=== PATIENT | female | born 1955 | race Caucasian/White ===

== ENCOUNTER → 2024-08-31 | Outpatient (CLI) | payer MEDICARE, OTHER, SELFPAY ==
--- NOTE | 2024-08-31 | XR_ITS ---
Examination: Screening digital mammography, bilateral Computer aided detection 3-D breast Tomosynthesis, bilateral Date and time of exam: August 31, 2024 1107 hours Compared to mammograms dating to July 17, 2021 Indication: Screening Technique: Nonmagnified MLO, CC views of the breasts to been obtained, reconstructed from 3-D Tomosynthesis images. R2 computer aided detection program utilized for evaluation of suspicious masses and/or abnormal calcifications. 3-D Tomosynthesis images obtained. Findings: Scattered areas of fibroglandular density. Stable focal asymmetric glandular tissue outer upper right breast No interval suspicious masses Impression: BI-RADS category II: Benign Findings. Recommend 1 year follow-up mammogram.
== END | disposition home or self-care (01) ==
PROVIDERS: PCP Family Medicine; Referring Provider Nurse Practitioner Family; Visit Provider Nurse Practitioner Family
DX: Z12.31 Encounter for screening mammogram for malignant neoplasm of breast (principal); R92.323 Mammographic fibroglandular density, bilateral breasts
CPT/HCPCS: 77063; 77067

== ENCOUNTER 2024-11-28 13:00 | Outpatient (RCR) | payer MEDICARE, OTHER, SELFPAY ==
--- NOTE | 2024-11-16 13:19 | PTNOTE_ITS ---
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 Pt still has pain (7/10) with activities. Pt has a follow up appt next week and there are still stables around the surgical site. Pt has limitation with lifting, overhead motions, chores, self care, cooking, cleaning, and performing recreational activities. Objective: Right Shoulder PROM Flexion: 90 deg Abduction: 80 deg ER: 10 deg IR: unable due to pain Right Shoulder AROM Flexion: 45 deg Abduction: 60 deg ER and IR: unable Right Shoulder MMTs: grossly 3-/5 Right Scapula MMTs: grossly 3-/5 District Commercial Superintendent Strength L: 50 lbs R: 34 lbs Assessment: Pt demonstrate right shoulder mobility and strength deficits s/p surgery leading to difficulty with ADLs. Pt will benefit from physical therapy to increase ROM, strength, and work on overall mobility Short Term and Strategic Partnership Manager Goals 1) Increase right shoulder PROM WFL in 12 wks to prevent frozen shoulder 2) Increase right shoulder AROM WFL in 12 wks to be able to perform overhead motions 3) Decrease shoulder pain 2/10 in 12 wks to be able to perform chores 3) Increase right shoulder MMTs grossly to 4/5 in 12 wks to be able to perform lifting activities 4) Increase right scapula MMTs grossly to 4-/5 in 12 wks to be able to perform recreational activities 5) Indep with HEP Treatment Plan 1) Manual Therapy 2) Therapeutic Activities 3) Therapeutic Exercises 4) Modalities (ice, heat) Frequency and Duration: 2 x wk for 6 wks Certification Dates: 11/16/24 to 02/15/25 Procedure Charges OP PT Eval Mod Complex 30 minutes: Yes
--- NOTE | 2024-11-22 11:28 | PT.ODAYNRPT ---
PT Outpatient Daily Note OP Daily Note Outpatient Physical Therapy Treatment Date: 11/22/24 Visit Reasons: Post op right shoulder Subjective: Pt's shoulder feels stiff and hurts this morning. Objective: Please see flow chart for list of ther ex performed Assessment: patient very guarded with PROM; cues to relax to achieve more PROM. Post ice helped with pain and soreness Plan: Continue with PT Length of Time (minutes) of Treatment: 30 Minutes Procedure Charges Therapeutic Exercise 30 minutes: Yes
--- NOTE | 2024-11-26 13:48 | PTNOTE_ITS ---
PT Outpatient Daily Note OP Daily Note Outpatient Physical Therapy Treatment Date: 11/26/24 Visit Reasons: Post op right shoulder Subjective: Pt c/o shoulder pain, soreness and stikffness. Objective: Please see flow sheet for ther ex list. Assessment: AAROM interventions completed with minimal pain. Pt guarded during PROM due to pain response resulting in poor motion. Plan: Continue with POC, progress per post op protocol. Length of Time (minutes) of Treatment: 30 Minutes PRODUCTION COUNTER Service Modifier Method I: Divide the number of min of care provided by the PRODUCTION COUNTER/DALE by the total min of care provided then multiply by 100. If greater than 11 percent modifier is required. Method II: Divide the total time of care provided to patient by 10 (round to the nearest whole number) and add 1 min. to set the minimum time requirement. If treatment total was 60 min., then 10% of 6 min PT CQ modifier applied: CQ Modifier applied Procedure Charges Therapeutic Exercise 30 minutes: Yes
--- NOTE | 2024-11-28 13:42 | PT.ODAYNRPT ---
PT Outpatient Daily Note OP Daily Note Outpatient Physical Therapy Treatment Date: 11/28/24 Visit Reasons: Post op right shoulder Subjective: Pt reports shoulder is sore going down the arm. Pt asking if she can mop at home as part of chores for home. Objective: Please see flow sheet for ther ex list. Assessment: Pt recommended to avoid heavy activities and lifting weighted objects, or lifting weighted object OH at this time due to current post op timeline. Pt educated to be mindful when doing chores and tasks at home to not over stress tissue or carry heavy objects avoiding unessasary stress on surgical site at this time. Plan: Assess response to treatment. Progress per post op protocol. Length of Time (minutes) of Treatment: 30 Minutes SHIPS OR BARGES LOADER Service Modifier Method I: Divide the number of min of care provided by the SHIPS OR BARGES LOADER/RUBBER ATTACHER by the total min of care provided then multiply by 100. If greater than 11 percent modifier is required. Method II: Divide the total time of care provided to patient by 10 (round to the nearest whole number) and add 1 min. to set the minimum time requirement. If treatment total was 60 min., then 10% of 6 min PT CQ modifier applied: CQ Modifier applied Procedure Charges Therapeutic Exercise 30 minutes: Yes
== END 2024-11-28 23:59 | disposition home or self-care (01) ==
LOC: CPTX 13:00
PROVIDERS: PCP Family Medicine; Referring Provider Nurse Practitioner; Visit Provider Nurse Practitioner
DX: M25.511 Pain in right shoulder (principal); Z96.611 Presence of right artificial shoulder joint
CPT/HCPCS: 97110; 97162

== ENCOUNTER 2024-12-25 13:30 | Outpatient (RCR) | payer MEDICARE, OTHER, SELFPAY ==
--- NOTE | 2024-12-03 13:33 | PT.ODAYNRPT ---
PT Outpatient Daily Note OP Daily Note Outpatient Physical Therapy Treatment Date: 12/03/24 Visit Reasons: right shoulder surgery Subjective: Pt reports R shoulder is sore. Objective: Please see flow sheet for ther ex list. Assessment: Progressing interventions per post op protocol, pt tolerated with minimal pain and soreness. Plan: Continue with pOC. Length of Time (minutes) of Treatment: 30 Minutes HEAD TRACK COACH Service Modifier Method I: Divide the number of min of care provided by the HEAD TRACK COACH/WET MACHINE OPERATOR by the total min of care provided then multiply by 100. If greater than 11 percent modifier is required. Method II: Divide the total time of care provided to patient by 10 (round to the nearest whole number) and add 1 min. to set the minimum time requirement. If treatment total was 60 min., then 10% of 6 min PT CQ modifier applied: CQ Modifier applied Procedure Charges Therapeutic Exercise 30 minutes: Yes
--- NOTE | 2024-12-05 13:16 | PTNOTE_ITS ---
PT Outpatient Daily Note OP Daily Note Outpatient Physical Therapy Treatment Date: 12/05/24 Visit Reasons: right shoulder surgery Subjective: No new complaints or concerns. Objective: Please see flow sheet for ther ex list. Assessment: Progression of interventions completed with minimal pain. Plan: Continue with POC. Length of Time (minutes) of Treatment: 30 Minutes LEGAL COORDINATOR Service Modifier Method I: Divide the number of min of care provided by the LEGAL COORDINATOR/FISH AND WILDLIFE BIOLOGIST by the total min of care provided then multiply by 100. If greater than 11 percent modifier is required. Method II: Divide the total time of care provided to patient by 10 (round to the nearest whole number) and add 1 min. to set the minimum time requirement. If treatment total was 60 min., then 10% of 6 min PT CQ modifier applied: CQ Modifier applied Procedure Charges Therapeutic Exercise 30 minutes: Yes
--- NOTE | 2024-12-14 16:05 | PT.ODAYNRPT ---
PT Outpatient Daily Note OP Daily Note Outpatient Physical Therapy Treatment Date: 12/14/24 Visit Reasons: right shoulder surgery Subjective: Pt's shoulder is better. Pt can reach higher with less pain. Pt follows up with surgeon at the end of the month. Objective: Right Shoulder Flexion AROM: 90 deg Assessment: progressing with shoulder AROM with less pain reported. Post ice helped with pain and soreness Plan: Continue with PT Length of Time (minutes) of Treatment: 30 Minutes Procedure Charges Therapeutic Exercise 30 minutes: Yes
--- NOTE | 2024-12-17 13:40 | PTNOTE_ITS ---
PT Outpatient Daily Note OP Daily Note Outpatient Physical Therapy Treatment Date: 12/17/24 Visit Reasons: right shoulder surgery Subjective: Pt reports shoulder was sore after last session, will not be skipping cold pack today. Objective: Please see flow sheet for ther ex list. Assessment: Regressed interventions to accommodate soreness reported. Plan: Continue with POC. Length of Time (minutes) of Treatment: 30 Minutes INVESTMENT MANAGER Service Modifier Method I: Divide the number of min of care provided by the INVESTMENT MANAGER/DALE by the total min of care provided then multiply by 100. If greater than 11 percent modifier is required. Method II: Divide the total time of care provided to patient by 10 (round to the nearest whole number) and add 1 min. to set the minimum time requirement. If treatment total was 60 min., then 10% of 6 min PT CQ modifier applied: CQ Modifier applied Procedure Charges Therapeutic Exercise 30 minutes: Yes
--- NOTE | 2024-12-19 13:39 | PT.ODAYNRPT ---
PT Outpatient Daily Note OP Daily Note Outpatient Physical Therapy Treatment Date: 12/19/24 Visit Reasons: right shoulder surgery Subjective: Pt's shoulder feels much better. Pt mentioned that she still has limitation with overhead motions. Objective: Please see flow chart for list of ther ex perfromed Assessment: still exhibit rotator cuff weakness leading to shoulder height AROM. Pt is progressing with shoulder AAROM in flexion, scaption, and ER Plan: Continue with PT Length of Time (minutes) of Treatment: 30 Minutes Procedure Charges Therapeutic Exercise 30 minutes: Yes
--- NOTE | 2024-12-25 14:56 | PTNOTE_ITS ---
PT Outpatient Daily Note OP Daily Note Outpatient Physical Therapy Treatment Date: 12/25/24 Visit Reasons: right shoulder surgery Subjective: Pt reports R shoulder is sore today, mentioned that she has pain when reaching out such as when applying deodorant r trying to wash under her armpits. Objective: Please see flow sheet for ther ex list. Assessment: Pt educated and instructed on AAROM and encouraged to perform for HEP, pt agreed. Plan: Continue with pOC. Length of Time (minutes) of Treatment: 30 Minutes FOOD SERVICE HOTEL RUNNER Service Modifier Method I: Divide the number of min of care provided by the FOOD SERVICE HOTEL RUNNER/DALE by the total min of care provided then multiply by 100. If greater than 11 percent modifier is required. Method II: Divide the total time of care provided to patient by 10 (round to the nearest whole number) and add 1 min. to set the minimum time requirement. If treatment total was 60 min., then 10% of 6 min PT CQ modifier applied: CQ Modifier applied Procedure Charges Therapeutic Exercise 30 minutes: Yes
== END 2024-12-29 23:59 | disposition home or self-care (01) ==
LOC: CPTX 13:30
PROVIDERS: PCP Nurse Practitioner; Referring Provider Nurse Practitioner; Visit Provider Nurse Practitioner
DX: M25.511 Pain in right shoulder (principal); Z96.611 Presence of right artificial shoulder joint
CPT/HCPCS: 97110

== ENCOUNTER 2025-01-16 13:00 | Outpatient (RCR) | payer MEDICARE, OTHER, SELFPAY ==
--- NOTE | 2024-12-31 13:32 | PT.ODAYNRPT ---
PT Outpatient Daily Note OP Daily Note Outpatient Physical Therapy Treatment Date: 12/31/24 Visit Reasons: right shoulder surgery Subjective: Pt's shoulder is weak and ache. Pt recently seen surgeon which explained to her what her shoulder replacement entails. Pt now understand what happened within the replaced shoulder. Pt also received a new PT order to continue physical therapy. Objective: Please see flow chart for list of ther ex performed Assessment: progressing with shoulder AROM in sidelying and supine with less pain reported. Pt is very guarded with supine scaption wand exercise due to fear of pain Plan: Continue with PT Length of Time (minutes) of Treatment: 30 Minutes Procedure Charges Therapeutic Exercise 30 minutes: Yes
--- NOTE | 2025-01-02 14:03 | PT.ODAYNRPT ---
PT Outpatient Daily Note OP Daily Note Outpatient Physical Therapy Treatment Date: 01/02/25 Visit Reasons: right shoulder surgery Subjective: Pt reports R shoulder is moving better but c/o discomfort on the front of the shoulder. Objective: Please see flow sheet for ther ex list. Assessment: Progressing intervention per post op protocol. Plan: Continue with pOC. Length of Time (minutes) of Treatment: 30 Minutes Procedure Charges Therapeutic Exercise 30 minutes: Yes
--- NOTE | 2025-01-07 14:36 | PT.ODAYNRPT ---
PT Outpatient Daily Note OP Daily Note Outpatient Physical Therapy Treatment Date: 01/07/25 Visit Reasons: right shoulder surgery Subjective: Pt reports R shoulder is stiff today. Objective: Please see flow sheet for ther ex list. Assessment: Pt demonstrates upper trap recruitment with AROM of R UE, verbal cues and demonstration for correction. Plan: Continue with pOC. Length of Time (minutes) of Treatment: 30 Minutes PANEL LAY UP WORKER Service Modifier Method I: Divide the number of min of care provided by the PANEL LAY UP WORKER/DALE by the total min of care provided then multiply by 100. If greater than 11 percent modifier is required. Method II: Divide the total time of care provided to patient by 10 (round to the nearest whole number) and add 1 min. to set the minimum time requirement. If treatment total was 60 min., then 10% of 6 min PT CQ modifier applied: CQ Modifier applied Procedure Charges Therapeutic Exercise 30 minutes: Yes
--- NOTE | 2025-01-09 13:33 | PT.ODS1RPT ---
PT OP Progress/Discharge Note Date of Service: 01/09/25 Progress Note/DC Note Progress Note/Discharge Note: Progress Note Patient Information Visit Reasons: right shoulder surgery Medical Diagnosis: M25.511; M19.011 Treatment Dx #1: Right Shoulder Pain Treatment Dx #2: Right Shoulder Mobility Deficits Service Continue Service or Discharge: Continue Service Certification Date Certification Dates: 01/09/25 to 04/11/25 Status Subjective: Pt's shoulder feels better and stronger. Pt notice reaching to shoulder height is getting easier with less pain. Pt has been able to perform light chores and ADLs with less limitation. Pt still has difficulty with overhead motions, cooking, reaching behind the back, and recreational activities. Objective: Right Shoulder AROM Flexion: 90 deg Abduction: 75 deg External Rotation: 20 deg Internal Rotation: 45 deg Right Shoulder MMTs: grossly 3-/5 Right Scapula MMTs: grossly 3-/5 HBB AROM: Thumb at T12 Assessment: Pt is progressing with right shoulder AROM and strength allowing her to start light ADLs with less limitation. Pt still exhibit scapulohumeral musculatures weakness leading to difficulty with arm movement past shoulder height. Pt has not met set goals and will continue to benefit from physical therapy; thank you for your referrals Plan: Continue with PT/POC and add 12 sessions (2 x wk for 6 wks) Procedure Charges Therapeutic Exercise 30 minutes: Yes
--- NOTE | 2025-01-14 13:25 | PT.ODAYNRPT ---
PT Outpatient Daily Note OP Daily Note Outpatient Physical Therapy Treatment Date: 01/14/25 Visit Reasons: right shoulder surgery Subjective: Pt's shoulder is better. Pt does not have any new concerns. Objective: Please see flow chart for list of ther ex performed Assessment: Pt continues to exhibit difficulty with supine and sidelying shoulder ROM exercises due to scapulohumeral musculature weakness Plan: Continue with PT Length of Time (minutes) of Treatment: 30 Minutes Procedure Charges Therapeutic Exercise 30 minutes: Yes
--- NOTE | 2025-01-16 14:28 | PT.ODAYNRPT ---
PT Outpatient Daily Note OP Daily Note Outpatient Physical Therapy Treatment Date: 01/16/25 Visit Reasons: right shoulder surgery Subjective: Pt's shoulder feels much better. Pt does not have any concerns at the moment. Objective: Please see flow chart for list of ther ex performed Assessment: improved scapula control with supine punches and decrease shoulder fatigue with shoulder exercises Plan: Continue with PT Length of Time (minutes) of Treatment: 30 Minutes Procedure Charges Therapeutic Exercise 30 minutes: Yes
== END 2025-01-28 23:59 | disposition home or self-care (01) ==
LOC: CPTX 13:00
PROVIDERS: PCP Nurse Practitioner; Referring Provider Nurse Practitioner; Visit Provider Nurse Practitioner
DX: M25.511 Pain in right shoulder (principal); R53.1 Weakness; Z96.611 Presence of right artificial shoulder joint
CPT/HCPCS: 97110